=== PATIENT | female | born 1970 | race American Indian/Alaskan Native ===

== ENCOUNTER 2018-05-07 20:33 | Emergency (ER) | payer OTHER ==
[2018-05-07 20:37] VITALS: BP 149/86
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
[2018-05-07] MEDS ORDERED: MOTRIN PO ONE (22:59)
[2018-05-07] MEDS ORDERED: MOTRIN ONE (23:02)
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
== END 2018-05-08 00:05 | disposition home or self-care (01) ==
LOC: ED 20:33
DX: S01.511A Laceration without foreign body of lip, initial encounter (principal); E66.9 Obesity, unspecified; Z79.82 Long term (current) use of aspirin; Z79.899 Other long term (current) drug therapy; Y04.8XXA Assault by other bodily force, initial encounter; Y93.89 Activity, other specified; Y99.8 Other external cause status; Y92.098 Other place in other non-institutional residence as the place of occurrence of the external cause
CPT/HCPCS: 70486